=== PATIENT | female | born 1995 | race Caucasian/White ===

== ENCOUNTER 2018-09-29 19:37 | Inpatient (IN) | payer OTHER ==
--- NOTE | 2018-09-29 20:18 | PDOC ---
Rapid Medical Evaluation Chief Complaint: Pain, Acute Medical Evaluation: 09/29/18 20:13 I have performed a brief in-person evaluation of this patient. The patient presents with a chief complaint of: abd cramping since am, recent IUD placement , No N/V/ no sick contacts Pertinent physical exam findings: pale, non toxic appearing I have ordered the following: UA/ UCG The patient will proceed to the ED for further evaluation. Discharge Disposition - Diagnosis Abdominal pain - Referrals Referrals: Meme Carr MD [Primary Care Provider] - - Patient Instructions - Post Discharge Activity
[2018-09-29 21:15] LABS: URINE APPEARANCE SLCLOUDY; URINE BILIRUBIN NEGATIVE (<2.0 mg/dL); URINE COLOR YELLOW; URINE GLUCOSE (UA) NEGATIVE (NEGATIVE); URINE KETONE NEGATIVE (NEGATIVE); URINE LEUK ESTERASE TRACE (NEGATIVE); URINE NITRITE NEGATIVE (NEGATIVE); URINE PROTEIN NEGATIVE (NEGATIVE); URINE UROBILINOGEN NEGATIVE mg/dL (0.2-1.0)
[2018-09-29 21:28] LABS: EPI CELLS FEW /HPF (FEW); URINE MUCUS RARE
--- NOTE | 2018-09-29 21:59 | PDOC ---
History of Present Illness - General Chief Complaint: Pain, Acute Stated Complaint: FALL/ABD PAIN Time Seen by Provider: 09/29/18 21:59 - History of Present Illness Initial Comments: 22 year old female with PMH of ovarian cysts, nephrolith, and IUD in place presenting with sudden onset right lower quadrant abdominal pain shortly after falling on the floor. States she tripped fell onto the floor on her left hand and got right back up, laughing subsequently about the event. However, 30 minutes later she began to feel right lower quadrant abdominal pain that is worse when laying down radiating to the left quadrant occasionally, intermittent , and sharp. Denies fevers, chills, nausea, vomiting, diarrhea, or other symptoms. She is not sure if this feels like her ovarian cysts as that happened many years prior. 09/29/18 23:05 Past History - Past Medical History Allergies/Adverse Reactions: Allergies Allergy/AdvReac Type Severity Reaction Status Date / Time No Known Allergies Allergy Verified 09/29/18 23:43 - Suicide/Smoking/Psychosocial Hx Smoking History: Never smoked Have you smoked in the past 12 months: No Hx Alcohol Use: Yes (Social) Drug/Substance Use Hx: No Review of Systems - Review of Systems Constitutional: No: Chills, Diaphoresis, Fever, Loss of Appetite HEENTM: No: Eye Pain, Blurred Vision, Tearing Respiratory: No: Cough, Orthopnea, Shortness of Breath, Wheezing Cardiac (ROS): No: Chest Pain, Edema, Irregular Heart Rate ABD/GI: Yes: Other (pain). No: Abdominal Distended, Diarrhea, Nausea, Vomiting : No: Dysuria, Discharge, Frequency Musculoskeletal: No: Back Pain, Joint Pain, Joint Swelling Integumentary: No: Lesions, Lumps Neurological: No: Headache, Numbness, Paresthesia Psychiatric: Yes: Anxiety. No: Depression Endocrine: No: Excessive Sweating, Flushing Hematologic/Lymphatic: No: Anemia, Blood Clots, Easy Bleeding, Bleeding Diathesis *Physical Exam - Vital Signs Last Vital Signs Temp Pulse Resp BP Pulse Ox 98 F 102 H 20 139/80 100 09/29/18 20:11 09/29/18 20:11 09/29/18 20:11 09/29/18 20:11 09/29/18 20:11 - Physical Exam General Appearance: Yes: Nourished, Appropriately Dressed, Apparent Distress, Moderate Distress HEENT: positive: EOMI, BISI, Normal ENT Inspection, Normal Voice Neck: positive: Trachea midline, Normal Thyroid. negative: Tender, Rigid Respiratory/Chest: positive: Lungs Clear, Normal Breath Sounds. negative: Chest Tender, Respiratory Distress, Accessory Muscle Use Cardiovascular: positive: Regular Rhythm, Regular Rate Gastrointestinal/Abdominal: positive: Normal Bowel Sounds, Tender (rlq tenderness), Flat, Soft Lymphatic: negative: Adenopathy, Tenderness Musculoskeletal: positive: Normal Inspection. negative: CVA Tenderness Extremity: positive: Normal Capillary Refill, Normal Inspection, Normal Range of Motion Integumentary: positive: Normal Color, Dry, Warm Neurologic: positive: Fully Oriented, Alert, Normal Mood/Affect, Normal Response , Motor Strength 5/5 Moderate Sedation - Procedure Monitoring Vital Signs: Procedure Monitoring Vital Signs Temperature 98 F 09/29/18 20:11 Pulse Rate 102 H 09/29/18 20:11 Respiratory Rate 20 09/29/18 20:11 Blood Pressure 139/80 09/29/18 20:11 O2 Sat by Pulse Oximetry (%) 100 09/29/18 20:11 ED Treatment Course - ADDITIONAL ORDERS Additional order review: Laboratory Results 09/29/18 09/29/18 20:53 20:53 Urine Color Yellow Urine Appearance Slcloudy Urine pH 6.0 Ur Specific [place] 1.024 Urine Protein Negative Urine Glucose (UA) Negative Urine Ketones Negative Urine Blood Negative Urine Nitrite Negative Urine Bilirubin Negative Urine Urobilinogen Negative Ur Leukocyte Esterase Trace Urine WBC (Auto) 3 Urine RBC (Auto) 2 Ur Epithelial Cells Few Urine Mucus Rare Urine HCG, Qual Negative Medical Decision Making - Medical Decision Making 22 year old female with PMH of ovarian cysts presenting with right lower quadrant pain after falling and getting up without issue. This pain is peculiar in presentation as she had no abdominal trauma and was asymptomatic for 30 minutes after the fall. Furthermore, she has no GI symptoms. This could be another ruptured ovarian cysts. U preg and UA negative. Patient received 30 IM Toradol with good relief. TVUS pending and patient signed out to Dr. Urrutia. 09/29/18 23:58 *DC/Admit/Observation/Transfer Diagnosis at time of Disposition: Abdominal pain Qualifiers: Abdominal location: right lower quadrant Qualified Code(s): R10.31 - Right lower quadrant pain - Discharge Dispostion Disposition: HOME Condition at time of disposition: Improved - Referrals Referrals: Meme Carr MD [Primary Care Provider] - - Patient Instructions - Post Discharge Activity
--- NOTE | 2018-09-29 23:06 | PDOC ---
Attending Attestation - HPI HPI: This patient is a 22 year old female, with a PMHx of nephrolithiasis, ruptured ovarian cysts, who presents to the ED for lower abdominal pain today. Patient states that she was walking with a friend and fell forward on her hands. She states that she began experiencing stomach pain later on in the day but thought it was weird since she did not hit her abdomen when she fell. She describes it as sharp, RLQ>LLQ, worse when lying down, better when sitting up, worse with respiration. Denies h/o abdominal surgeries. Denies any nausea, vomiting, diarrhea, fever, chills, shortness of breath. 09/29/18 23:21 <Kristyn Fitzgerald - Last Filed: 09/29/18 23:21> - Resident Resident Name: Anika Garza - ED Attending Attestation I have performed the following: I have examined & evaluated the patient, The case was reviewed & discussed with the resident, I agree w/resident's findings & plan, Exceptions are as noted - Physicial Exam PE: 09/30/18 00:39 obese 22 yo female dev sudden RLQ pain tonight denies any fever,chills,nausea,vomiting head ncat neck supple lungs cta b/l cvs [id number] abd protuberant with RLQ pain extremities no edema skin warm and dry no cva tenderness neuro axox3,ambulatory psych appropriate - Medical Decision Making 09/30/18 02:11 Initially a transvaginal ultrasound was performed. Within the right adnexa. There was a 6.5 cm x 4 cm x 4 cm heterogeneous structure noted in the soft tissue and fluid components suggestive of an enlarged ovary. A normal appearing right ovary cannot be definitely visualized. This appearance , may be on the basis of infection and probably less likely neoplastic disease. Additional evaluation using contrast-enhanced CT is suggested. A moderate amount of nonspecific free intraperitoneal fluid is seen within the right adnexa and also within the right upper quadrant of the abdomen The left ovary demonstrates no definite abnormality. There is possible dilatation of the left fallopian tube. There is no Doppler evidence of left ovarian torsion. If "uterus appears unremarkable and overall size. there appears to be an IUD in place 09/30/18 02:14 CAT scan of the abdomen and pelvis contrast was obtained and I received a call from the radiologist. There is a complex lesion region right adnexa with adjacent fluid measuring 6.6 cm x 5.7 cm x 3.6 cm. The fluid extending into the right pericolic gutter with a small amount of fluid noted at the tip of the liver. The IUD appears in proper position without any evidence of migration. No left adnexal masses appreciated. The liver, spleen, pancreas, adrenal glands and kidneys are unremarkable. Gallbladder is unremarkable. No ureteral or bladder abnormalities noted Terminal ileum is normal in appearance The appendix is coil adjacent to the base of the cecum with a distal tip noted within the right lower quadrant of the abdomen. No obvious appendicolith identified. No inflammatory changes to the bases cecum. No large or small bowel inflammatory changes evident Impression pelvic findings concerning for tubo-ovarian abscess, ovarian torsion There are no findings to suggest acute appendicitis. Case discussed with Dr. Martin and patient will be admitted to [facility] with zosyn 09/30/18 02:17 <Camryn Urrutia - Last Filed: 09/30/18 02:21>
[2018-09-29] MEDS ORDERED: KETOROLAC TROMETHAMINE 30 MG/1 ML VIAL IM ONE (23:56)
[2018-09-30 00:20] LABS: BASO % 0.1 % (0-2.0); EOS % 0.1 % (0-4.5); HEMOGLOBIN 13.3 GM/dL (10.7-15.3); LYMPH % 6.9 % (8-40); MCH 28.4 pg (25.7-33.7); MCHC 34.1 g/dl (32.0-36.0); MEAN CELL VOLUME 83.2 fl (80-96); MEAN PLT VOLUME 7.3 fl (7.5-11.1); MONO % 4.6 % (3.8-10.2); NEUT % 88.3 % (42.8-82.8); PLATELET COUNT 285 K/MM3 (134-434); RBC 4.68 M/mm3 (3.60-5.2); WHITE BLOOD COUNT 16.4 K/mm3 (4.0-10.0)
[2018-09-30] MEDS ORDERED: SODIUM CHLORIDE 1,000 ML IV STA (00:25)
[2018-09-30] MEDS ORDERED: KETOROLAC TROMETHAMINE 30 MG/1 ML VIAL ONE (00:32)
[2018-09-30 00:43] LABS: INR 1.04 (0.83-1.09); PROTHROMBIN TIME (PATIENT) 12.3 SEC (9.7-13.0)
[2018-09-30] MEDS ORDERED: KETOROLAC TROMETHAMINE 30 MG/1 ML VIAL IVPUSH ONE (00:48)
[2018-09-30 00:52] LABS: ALBUMIN 3.6 g/dl (3.4-5.0); ALK PHOS 65 U/L (45-117); ANION GAP 8 MMOL/L (8-16); BILIRUBIN,TOTAL 0.4 mg/dL (0.2-1); BLOOD UREA NITROGEN 15 mg/dL (7-18); CALCIUM 9.1 mg/dL (8.5-10.1); CHLORIDE 106 mmol/L (98-107); CO2 25 mmol/L (21-32); CREATININE 0.7 mg/dL (0.55-1.3); GLUCOSE,RANDOM 89 mg/dL (74-106); POTASSIUM 4.3 mmol/L (3.5-5.1); SGOT/AST 12 U/L (15-37); SGPT/ALT 29 U/L (13-61); SODIUM 138 mmol/L (136-145); TOT PROT 6.9 g/dl (6.4-8.2)
[2018-09-30] MEDS ORDERED: HYDROmorphone HCl 2 MG/ML VIAL ONE (02:22)
--- NOTE | 2018-09-30 02:24 | PDOC ---
*Physical Exam - Vital Signs Last Vital Signs Temp Pulse Resp BP Pulse Ox 98 F 102 H 20 139/80 100 09/29/18 20:11 09/29/18 20:11 09/29/18 20:11 09/29/18 20:11 09/29/18 20:11 ED Treatment Course - LABORATORY CBC & Chemistry Diagram: 09/29/18 23:53 09/29/18 23:53 - ADDITIONAL ORDERS Additional order review: Laboratory Results 09/29/18 09/29/18 09/29/18 23:53 23:53 20:53 PT with INR 12.30 INR 1.04 Sodium 138 Potassium 4.3 Chloride 106 Carbon Dioxide 25 Anion Gap 8 BUN 15 Creatinine 0.7 Creat Clearance w eGFR > 60 Random Glucose 89 Calcium 9.1 Total Bilirubin 0.4 AST 12 L ALT 29 Alkaline Phosphatase 65 Total Protein 6.9 Albumin 3.6 Urine Color Yellow Urine Appearance Slcloudy Urine pH 6.0 Ur Specific [place] 1.024 Urine Protein Negative Urine Glucose (UA) Negative Urine Ketones Negative Urine Blood Negative Urine Nitrite Negative Urine Bilirubin Negative Urine Urobilinogen Negative Ur Leukocyte Esterase Trace Urine WBC (Auto) 3 Urine RBC (Auto) 2 Ur Epithelial Cells Few Urine Mucus Rare Urine HCG, Qual 09/29/18 20:53 PT with INR INR Sodium Potassium Chloride Carbon Dioxide Anion Gap BUN Creatinine Creat Clearance w eGFR Random Glucose Calcium Total Bilirubin AST ALT Alkaline Phosphatase Total Protein Albumin Urine Color Urine Appearance Urine pH Ur Specific [place] Urine Protein Urine Glucose (UA) Urine Ketones Urine Blood Urine Nitrite Urine Bilirubin Urine Urobilinogen Ur Leukocyte Esterase Urine WBC (Auto) Urine RBC (Auto) Ur Epithelial Cells Urine Mucus Urine HCG, Qual Negative 09/29/18 23:53 RBC 4.68 MCV 83.2 MCHC 34.1 RDW 14.0 MPV 7.3 L Neutrophils % 88.3 H Lymphocytes % 6.9 L Monocytes % 4.6 Eosinophils % 0.1 Basophils % 0.1 - RADIOLOGY Radiology Studies Ordered: Category Date Time Status ABDOMEN & PELVIS CT WITH CONTR [CT] Stat CT Scan 09/30/18 00:24 Taken *DC/Admit/Observation/Transfer Diagnosis at time of Disposition: Right adnexal tenderness, TOA (tubo-ovarian abscess) Leukocytosis Qualifiers: Leukocytosis type: unspecified Qualified Code(s): D72.829 - Elevated white blood cell count, unspecified - Discharge Dispostion Condition at time of disposition: Fair Decision to Admit order: Yes - Referrals Referrals: Meme Carr MD [Primary Care Provider] - - Patient Instructions - Post Discharge Activity
[2018-09-30] MEDS ORDERED: HYDROmorphone HCL CARPU-JECT 2 MG/1 ML DISP.SYRIN IVPUSH STA (02:25)
[2018-09-30] MEDS ORDERED: PIPERACILLIN/TAZOB 3.375 GM 3.375 GM in DEXTROSE 5%-WATER - 50 ML IVPB ONE ×2 (02:26→03:15)
[2018-09-30] MEDS ORDERED: PIPERACILLIN/TAZOB 3.375 GM 3.375 GM/50 ML BAG IVPB ONE (02:56)
[2018-09-30] MEDS ORDERED: CEFOXITIN SODIUM 1 GM in DEXTROSE 5%-WATER - 100 ML IVPB ONE (03:09)
[2018-09-30 04:01] VITALS: BMI 41.5
[2018-09-30] MEDS ORDERED: DOXYCYCLINE INJECTION 100 MG in DEXTROSE 5%-WATER - 100 ML IVPB STA (04:17)
[2018-09-30] MEDS ORDERED: DEXTROSE 5%-LACTATED RINGERS 1,000 ML IV SCH (04:45)
[2018-09-30] MEDS: ACETAMINOPHEN 325 MG TABLET (FP) PO PRN ×4 (04:53→21:43)
[2018-09-30] MEDS ORDERED: FLU VACCINE QUAD 60 MCG/0.5 ML (MDV 18-19) IM ONE (10:00)
--- NOTE | 2018-09-30 10:21 | HP ---
Admitting History and Physical - Admission Chief Complaint: Abdominal pain History of Present Illness: 22 yo , LMP 08/27/[address], admitted for suspicion of pelvic inflammatory infection. She was given IV antibiotic in ER and was placed on analgesia. History Source: Patient Limitations to Obtaining History: No Limitations - Past Medical History ...LMP: 08/27/18 ...LMP Comment: irregular menstruation ...: No ...Para: 0 - Past Surgical History Past Surgical History: Yes: None - Advance Directives Advance Directives: Yes: Organ Donor - Smoking History Smoking history: Never smoked Have you smoked in the past 12 months: No - Alcohol/Substance Use Hx Alcohol Use: Yes (Social) - Social History Usual Living Arrangement: Yes: With Parent History of Recent Travel: No Home Medications - Allergies Allergies/Adverse Reactions: Allergies Allergy/AdvReac Type Severity Reaction Status Date / Time No Known Allergies Allergy Verified 09/29/18 23:43 - Home Medications Home Medications: Ambulatory Orders NK [No Known Home Medication] 09/30/18 Family Disease History - Family Disease History Family History: Unremarkable Review of Systems - Review of Systems Constitutional: reports: No Symptoms Eyes: reports: No Symptoms HENT: reports: No Symptoms Neck: reports: No Symptoms Cardiovascular: reports: No Symptoms Respiratory: reports: No Symptoms Gastrointestinal: reports: No Symptoms Genitourinary: reports: Pain Breasts: reports: No Symptoms Reported Musculoskeletal: reports: No Symptoms Neurological: reports: No Symptoms Psychiatric: reports: No Symptoms Pain Intensity: 8 Physical Examination Vital Signs: Vital Signs Temperature 97.7 F 09/30/18 08:38 Pulse Rate 85 09/30/18 08:38 Respiratory Rate 20 09/30/18 08:38 Blood Pressure 119/62 09/30/18 08:38 O2 Sat by Pulse Oximetry (%) 100 09/30/18 03:31 Constitutional: Yes: Well Nourished Eyes: Yes: Conjunctiva Clear HENT: Yes: Atraumatic Neck: Yes: Supple Cardiovascular: Yes: Regular Rate and Rhythm Respiratory: Yes: Regular Gastrointestinal: Yes: Normal Bowel Sounds Musculoskeletal: Yes: WNL Extremities: Yes: WNL Neurological: Yes: Alert, Oriented ...Motor Strength: WNL Psychiatric: Yes: Alert, Oriented Labs: CBC, BMP 09/29/18 23:53 09/29/18 23:53 Problem List - Problems (1) Pelvic inflammatory disease (PID) Code(s): N73.9 - FEMALE PELVIC INFLAMMATORY DISEASE, UNSPECIFIED Assessment/Plan Abdominal pain Leukocytosis R/O TOA R/O PID IV antibiotic Continue analgesia
[2018-09-30] MEDS ORDERED: ACETAMINOPHEN 325 MG TABLET (FP) PO PRN (10:22)
[2018-09-30] MEDS: oxyCODONE HCL 5 MG TABLET PO PRN ×3 (10:25→21:44)
[2018-09-30] MEDS: CEFOTETAN DISODIUM 2 GM in DEXTROSE 5%-WATER - 100 ML IVPB SCH ×2 (12:17→21:43)
[2018-09-30] MEDS: DOXYCYCLINE INJECTION 100 MG in DEXTROSE 5%-WATER - 100 ML IVPB SCH (22:54)
[2018-10-01 06:01] LABS: BASO % 0.4 % (0-2.0); EOS % 1.4 % (0-4.5); HEMATOCRIT 32.2 % (32.4-45.2); LYMPH % 25.4 % (8-40); MCH 28.8 pg (25.7-33.7); MCHC 34.2 g/dl (32.0-36.0); MEAN CELL VOLUME 84.3 fl (80-96); MEAN PLT VOLUME 6.9 fl (7.5-11.1); MONO % 7.6 % (3.8-10.2); NEUT % 65.2 % (42.8-82.8); PLATELET COUNT 188 K/MM3 (134-434); RBC 3.82 M/mm3 (3.60-5.2); RDW 13.8 % (11.6-15.6); WHITE BLOOD COUNT 7.1 K/mm3 (4.0-10.0)
--- NOTE | 2018-10-01 06:25 | PN ---
Progress Note (SOAP) - Subjective Chief Complaint: Pt improved after antibiotic - Current Medications Current Medications: Active Medications Acetaminophen (Tylenol -) 650 mg PO Q4H PRN PRN Reason: PAIN Last Admin: 09/30/18 21:43 Dose: 650 mg Acetaminophen (Tylenol -) 325 mg PO Q4H PRN PRN Reason: PAIN 1-5 Dextrose/Lactated Ringer's (D5-Lr -) 1,000 mls @ 125 mls/hr IV ASDIR WILLY Last Admin: 09/30/18 04:54 Dose: 125 mls/hr Doxycycline Hyclate 100 mg/ (Dextrose) 100 mls @ 50 mls/hr IVPB BID WILLY Last Admin: 09/30/18 22:54 Dose: 50 mls/hr Cefotetan Disodium 2 gm/ (Dextrose) 100 mls @ 200 mls/hr IVPB Q12H [facility]; Protocol Stop: 10/01/18 10:14 Last Admin: 09/30/18 21:43 Dose: 200 mls/hr Oxycodone HCl (Roxicodone -) 5 mg PO Q4H PRN PRN Reason: PAIN LEVEL 1-5 Last Admin: 09/30/18 21:44 Dose: 5 mg - Objective Vital Signs: Vital Signs Temperature 98.3 F 09/30/18 22:00 Pulse Rate 91 H 09/30/18 22:00 Respiratory Rate 18 09/30/18 22:00 Blood Pressure 102/52 L 09/30/18 22:00 O2 Sat by Pulse Oximetry (%) 100 09/30/18 03:31 Constitutional: Yes: Well Nourished, No Distress Gastrointestinal: Yes: WNL, Normal Bowel Sounds, Soft Musculoskeletal: Yes: WNL Extremities: Yes: WNL Edema: No Labs Lab Results: CBC, BMP 10/01/18 05:50 09/29/18 23:53 Assessment/Plan PID on abs doing well plan continue preasent management
[2018-10-01] MEDS: DOXYCYCLINE INJECTION 100 MG in DEXTROSE 5%-WATER - 100 ML IVPB SCH (09:14)
--- NOTE | 2018-10-01 11:09 | DS ---
Physical Examination Vital Signs: Vital Signs Temperature 98.3 F 09/30/18 22:00 Pulse Rate 91 H 09/30/18 22:00 Respiratory Rate 18 09/30/18 22:00 Blood Pressure 102/52 L 09/30/18 22:00 O2 Sat by Pulse Oximetry (%) 100 09/30/18 03:31 Constitutional: Yes: No Distress Eyes: Yes: Conjunctiva Clear HENT: Yes: Atraumatic Neck: Yes: Supple Cardiovascular: Yes: Regular Rate and Rhythm Respiratory: Yes: Regular Gastrointestinal: Yes: Normal Bowel Sounds Breast(s): Yes: WNL Musculoskeletal: Yes: WNL Extremities: Yes: WNL Neurological: Yes: Alert, Oriented ...Motor Strength: WNL Psychiatric: Yes: Alert, Oriented Labs: CBC, BMP 10/01/18 05:50 09/29/18 23:53 Discharge Summary Reason For Visit: TUBO-OVARIAN ABSCESS LEUKOCYTOSIS Current Active Problems Leukocytosis (Acute) Pelvic inflammatory disease (PID) (Acute) Right adnexal tenderness (Acute) TOA (tubo-ovarian abscess) (Acute) Procedures: Principal: Administration of IV antibiotics Hospital Course: Patient admitted for abdominal pain. After Cat scan and pelvic sonogram she was given a diagnosis of tuboovarian abscess / PID. During her stay, she received IV antibiotics and analgesia. Condition: Fair - Instructions Diet, Activity, Other Instructions: Regular diet F/U with OBGYN as outpatient Referrals: Meme Carr MD [Primary Care Provider] - - Home Medications Comprehensive Discharge Medication List: Ambulatory Orders Doxycycline Hyclate 100 mg PO BID #20 tablet 10/01/18 Ibuprofen [Motrin -] 600 mg PO Q4H PRN #60 tablet 10/01/18 metroNIDAZOLE [Flagyl -] 500 mg PO DAILY #14 tablet 10/01/18
[2018-10-01 12:00] VITALS: BP 117/63; PULSE 90; TEMP 97.9
== END 2018-10-01 12:05 | disposition home or self-care (01) | DRG 759 ==
LOC: JER 19:37 → JERBED 09-30 02:24 → J3W 09-30 03:35
PROVIDERS: ADMIT Obstetrics & Gynecology; ATTEND Obstetrics & Gynecology
DX: N70.93 Salpingitis and oophoritis, unspecified (principal); D72.829 Elevated white blood cell count, unspecified; N73.9 Female pelvic inflammatory disease, unspecified
CPT/HCPCS: 36415; 74177-TC; 76830-TC; 80053; 81003; 81015; 84703; 85025; 85610; 99284-25

== ENCOUNTER 2018-10-02 17:56 | Emergency (ER) | payer OTHER ==
--- NOTE | 2018-10-02 18:00 | PDOC ---
Rapid Medical Evaluation Chief Complaint: Chest Pain Time Seen by Provider: 10/02/18 17:59 Medical Evaluation: Allergies Allergy/AdvReac Type Severity Reaction Status Date / Time No Known Allergies Allergy Verified 09/29/18 23:43 10/02/18 18:02 I have performed a brief in-person evaluation of this patient. The patient presents with a chief complaint of: Chest pain and dyspnea. Pt is s/ p 2 night admission for pelvic pain initially suspicious for TOA, dx at time of dc was ruptured ovarian cyst; she was also given abx for possible PID. Pt has Mirena IUD. Pertinent physical exam findings: HR 124. Lungs CTAB, RRR S1/S2 no murmurs. No calf tenderness or edema. I have ordered the following: EKG, labs, CTA chest r/o PE. The patient will proceed to the ED for further evaluation. 10/02/18 18:03 Discharge Disposition - Diagnosis Tachycardia Chest pain Qualifiers: Chest pain type: unspecified Qualified Code(s): R07.9 - Chest pain, unspecified Dyspnea Qualifiers: Dyspnea type: shortness of breath Qualified Code(s): R06.02 - Shortness of breath; R06.00 - Dyspnea, unspecified; R06.01 - Orthopnea - Discharge Dispostion Condition at time of disposition: Stable - Referrals - Patient Instructions - Post Discharge Activity
[2018-10-02 18:01] VITALS: BMI 41.5
[2018-10-02] MEDS ORDERED: SODIUM CHLORIDE 1,000 ML IV STA (18:01)
[2018-10-02 18:30] LABS: BASO % 0.1 % (0-2.0); EOS % 0.3 % (0-4.5); HEMOGLOBIN 13.4 GM/dL (10.7-15.3); LYMPH % 7.8 % (8-40); MCH 28.4 pg (25.7-33.7); MCHC 34.3 g/dl (32.0-36.0); MEAN CELL VOLUME 82.8 fl (80-96); MONO % 5.7 % (3.8-10.2); NEUT % 86.1 % (42.8-82.8); PLATELET COUNT 234 K/MM3 (134-434); RBC 4.71 M/mm3 (3.60-5.2); RDW 13.6 % (11.6-15.6); WHITE BLOOD COUNT 11.7 K/mm3 (4.0-10.0)
[2018-10-02 18:35] LABS: INR 1.14 (0.83-1.09); PROTHROMBIN TIME (PATIENT) 13.5 SEC (9.7-13.0)
--- NOTE | 2018-10-02 19:07 | PDOC ---
Attending Attestation - HPI HPI: 10/02/18 19:59 Patient is a 22 year old female with a significant past medical history of recurrent kidney stones, who presents to the ED with complaints of left upper back pain that began this morning. Patient reports waking up to severe left sided upper back pain, that she states is increased in intensity with deep inspiration. She reports experiencing intermittent episodes of chest discomfort and shortness of breath that is increased with minor exertion. Patient reports being recently admitted for ovarian abscess for IV antibiotics, and was discharged shortly after with prescription for oral antibiotics. She reports going to her [facility] this afternoon for a follow up, who noticed her vital signs were abnormal, advising her to come into the ED for further evaluation. Denies chest pain, Sob. Denies nausea, vomiting. Denies fevers, chills. Denies dysuria, hematuria. Denies constipation, diarrhea. Denies trauma to affected area, loss of consciousness. Denies contact with sick individuals, out of state travelling. Denies any other symptoms. Allergies: None Social history: lives with mother. No smoking. Social alcohol use. No illicit drugs. Surgical: ACL surgery. PMD: Dr. Carr - Physicial Exam PE: 10/02/18 19:59 GENERAL: Awake, alert, and fully oriented, in no acute distress HEAD: No signs of trauma EYES: PERRLA, EOMI, sclera anicteric, conjunctiva clear ENT: Auricles normal inspection, hearing grossly normal, nares patent, oropharynx clear without exudates. Moist mucosa NECK: Normal ROM, supple, no lymphadenopathy, JVD, or masses LUNGS: Breath sounds equal, clear to auscultation bilaterally. No wheezes, and no crackles HEART: +Tachycardic. Regular rate and rhythm, normal S1 and S2, no murmurs, rubs or gallops ABDOMEN: Soft, nontender, normoactive bowel sounds. No guarding, no rebound. No masses EXTREMITIES: -Homans sign. No calf tenderness. Normal range of motion, no edema. No clubbing or cyanosis. No cords, erythema, or tenderness MUSCULOSKELETAL: No midline or c spine tenderness. NEUROLOGICAL: Cranial nerves II through XII grossly intact. Normal speech, normal gait SKIN: Warm, Dry, normal turgor, no rashes or lesions noted. <Jerry Mccoy - Last Filed: 10/02/18 19:59> - Resident Resident Name: Radha Villanueva - ED Attending Attestation I have performed the following: I have examined & evaluated the patient, The case was reviewed & discussed with the resident, I agree w/resident's findings & plan, Exceptions are as noted - Medical Decision Making 10/02/18 19:07 I, Dr. Inocencia Avila, DO, attest that this document has been prepared under my direction and personally reviewed by me in its entirety. I further attest, that it accurately reflects all work, treatment, procedures and medical decision -making performed by me. 10/02/18 19:35 a/p: 22yo female with CP ad SOB since this Am -back and cp -recent hospitalization for TOA and ovarian cyst -seen at [facility] earlier today for her [facility] [employer] [facility] [employer] follow up and there was concern for PE given tachypnea, pleuritic cp, and tachycardia -no leg swelling -no reproducible chest wall pain -no reproducible midline back ttp -will send labs, cta chest, ekg -ivf hydration, toradol for pain, received tylenol at [facility] 10/02/18 23:30 cta negative tsh normal pt feeling much better ambulates with a steady gait no cp no sob no pleuritic component states she wants to go home mild tachycardia will give cardiology follow up for further eval <Inocencia Avila - Last Filed: 10/02/18 23:33> Heart Score/ECG Review - ECG Intrepretation Comment:: 10/02/18 19:55 sinus tach at 117, nl axis, nl interval, t wave inversions III, no acute st/t wave findings <Inocencia Avila - Last Filed: 10/02/18 23:33>
[2018-10-02] MEDS ORDERED: KETOROLAC TROMETHAMINE 15 MG/ML VIAL IVPUSH ONE (19:16)
[2018-10-02] MEDS ORDERED: KETOROLAC TROMETHAMINE 15 MG/ML VIAL ONE (19:26)
[2018-10-02 19:31] LABS: ALBUMIN 3.8 g/dl (3.4-5.0); ALK PHOS 66 U/L (45-117); ANION GAP 7 MMOL/L (8-16); BILIRUBIN,TOTAL 0.6 mg/dL (0.2-1); BLOOD UREA NITROGEN 7 mg/dL (7-18); CALCIUM 9.4 mg/dL (8.5-10.1); CHLORIDE 105 mmol/L (98-107); CO2 24 mmol/L (21-32); CREATININE 0.7 mg/dL (0.55-1.3); GLUCOSE,RANDOM 112 mg/dL (74-106); POTASSIUM 4.2 mmol/L (3.5-5.1); SGOT/AST 19 U/L (15-37); SGPT/ALT 24 U/L (13-61); SODIUM 136 mmol/L (136-145); TOT PROT 7.3 g/dl (6.4-8.2)
--- NOTE | 2018-10-02 19:38 | PDOC ---
History of Present Illness - General Chief Complaint: Chest Pain Stated Complaint: PCP SENT/CHEST PAIN Time Seen by Provider: 10/02/18 17:59 - History of Present Illness Initial Comments: Niru Martins is a 22yo otherwise healthy, morbidly obese woman, recently admitted for tuboovarian abscess v PID (09/29-10/01) who presents from her cost controller's office today with tachycardia, tachypnea, upper pleuritic chest pain, and SOB since this morning. Niru reports that she has had mild suprapubic and right lower abdominal pain since being discharged from the hospital; she also endorses nausea and mild anorexia. However, these symptoms have improved over time. She has been taking her antibiotics as prescribed. She went to her cost controller today for follow up and was told that "everything was OK' with recovery from the TOA, but they were concerned for a possible blood clot given her tachycardia, tachypnea, SOB and pleuritic pain. She states that she felt short of breath starting this morning along with significant shortness of breath. She states that she needed to take breaks to walk across the parking lot, and she even got "out of breath tying her shoes." She has no h/o asthma and has never felt like this before. She describes her pain as in the left upper back, upper chest, and into the left neck. She states that it worsens with deep breaths and is tolerable when breathing shallowly. Ms Martins denies any personal history of blood clots, known clotting disorder, family history of clots, personal history of CA, recent travel (went via car to [place], took breaks every 2-3 hours), oral contraceptive use (Mirena IUD), recent fracture or surgery, or recent immobilization. She reports that she received acetaminophen around 5pm with some improvement in her pain. Past History - Past Medical History Allergies/Adverse Reactions: Allergies Allergy/AdvReac Type Severity Reaction Status Date / Time No Known Allergies Allergy Verified 09/29/18 23:43 Home Medications: Ambulatory Orders Doxycycline Hyclate 100 mg PO BID #20 tablet 10/01/18 Ibuprofen [Motrin -] 600 mg PO Q4H PRN #60 tablet 10/01/18 metroNIDAZOLE [Flagyl -] 500 mg PO DAILY #14 tablet 10/01/18 Anemia: No Asthma: No Cancer: No Cardiac Disorders: No CVA: No COPD: No CHF: No Dementia: No Diabetes: No GI Disorders: No Disorders: Yes (kidney stones 2018) HTN: No Hypercholesterolemia: No Liver Disease: No Seizures: No Thyroid Disease: No - Surgical History Abdominal Surgery: No Appendectomy: No Cardiac Surgery: No Cholecystectomy: No Lung Surgery: No Neurologic Surgery: No Orthopedic Surgery: Yes (ACL reconstruction) - Immunization History Immunization Up to Date: No - Suicide/Smoking/Psychosocial Hx Smoking History: Never smoked Have you smoked in the past 12 months: No Information on smoking cessation initiated: No Hx Alcohol Use: No Drug/Substance Use Hx: No Substance Use Type: None Review of Systems - Review of Systems Comments:: General: No fevers, no chills, no weight or appetite change, no malaise HEENT: No changes in vision, no changes in hearing, no congestion, no sore throat CV: No exertional chest pain, no palpitations, no LE edema Pulm: See HPI GI: No nausea or vomiting, no change in bowel habits, no melena : No frequency, no urgency, no dysuria. Recent ovarian abscess, cyst Musc: No back pain, no joint swelling, no recent injury Skin: No rash, no lesions, no erythema Endo: No excessive thirst, no heat/cold intolerance Heme: No unusual bruising or bleeding, no swollen glands Neuro: No syncope, no numbness/tingling, no focal weakness Vasc: No claudication Psych: No recent change in mood, no SI or HI *Physical Exam - Vital Signs Last Vital Signs Temp Pulse Resp BP Pulse Ox 98.2 F 123 H 18 127/77 95 10/02/18 17:58 10/02/18 17:58 10/02/18 17:58 10/02/18 17:58 10/02/18 17:58 - Physical Exam Comments: General: No acute distress, morbidly obese, appears stated age HEENT: PERRL, EOMI, MMM, voice normal, normal neck ROM, no LAD Cards: Tachycardic, regular, no murmur appreciated Pulm: Mildly tachypnic on room air, clear to auscultation bilaterally, no wheezing or crackles, good air movement throughout b/l lungs Abd: Soft, nondistended. Mild suprapubic and lower abdominal tenderness, R>L : No CVA tenderness Ext: Atraumatic. No LE edema. ROM intact. Strength 5/5 and equal bilaterally. No calf tenderness or swelling, no pain w/ passive foot flexion Vasc: Extremities WWP Skin: Normal color, no rashes or lesions Neuro: A&Ox3, CN grossly intact, normal speech, motor/sensory grossly intact and symmetric Psych: Mood appropriate to situation Moderate Sedation - Procedure Monitoring Vital Signs: Procedure Monitoring Vital Signs Temperature 98.2 F 10/02/18 17:58 Pulse Rate 123 H 10/02/18 17:58 Respiratory Rate 18 10/02/18 17:58 Blood Pressure 127/77 10/02/18 17:58 O2 Sat by Pulse Oximetry (%) 95 10/02/18 17:58 Heart Score/ECG Review - ECG Intrepretation Rhythm: Regular Rhythm - [place]: Normal - P and [place] Prominent R with upright T in V1 (true posterior MT): No Delta Wave(s) Present: No WPW: No - ST and T Non Specific ST-T Wave changes: Yes - ECG Impressions Tachycardia: Sinus ED Treatment Course - LABORATORY CBC & Chemistry Diagram: 10/02/18 18:10 10/02/18 18:10 - ADDITIONAL ORDERS Additional order review: Laboratory Results 10/02/18 10/02/18 18:10 18:08 PT with INR 13.50 H INR 1.14 H Urine HCG, Qual Negative 10/02/18 18:10 RBC 4.71 MCV 82.8 MCHC 34.3 RDW 13.6 MPV 7.0 L Neutrophils % 86.1 H D Lymphocytes % 7.8 L D Monocytes % 5.7 Eosinophils % 0.3 Basophils % 0.1 Medical Decision Making - Medical Decision Making 10/02/18 19:16 Niru Martins is a 22yo otherwise healthy woman, recently admitted with R ovarian cyst, ovarian abscess, and PID who presents from her OB's office with left upper pleuritic pain, shortness of breath, tachycardia, and tachypnea. \\ - Given history, vitals, and normal lung exam, concern for PE despite lack of risk factors (no personal or family h/o clots, no oral contraceptives, no recent surgery, no recent fracture, no prolonged immobilization, no significant recent travel) - CBC, CMP, CTA ordered in RME. CBC unremarkable, chemistry pending. Once Cr is resulted will take to CT - EKG with sinus tachycardia. Non-specific t-wave inversions in III; no other abnormalities noted. - 15mg IV toradol for continue abd pain 10/02/18 20:01 - Chemistry reviewed, no concerning abnormalities - Will take for CTA 21:20 - CT completed, no thrombus noted. Per radiology read has bibasilar atalectasis - likely secondary to shallow breathing today - Reports pain is notably improved after toradol - Ambulated to bathroom, able to walk normal rate, no shortness of breath - Eating dinner w/o difficulty. On further questioning, reports that she has not had anything at all to drink today and minimal fluid intake yesterday. Suspect mild dehydration may be contributing to tachycardia. 2nd 1L fluid bolus given 10/02/18 22:15 - HR rechecked at bedside after completing 2nd liter of IVF. Still around 110. Pt reports minimal pain at this point, is able to take deep breath - Given continued tachycardia with normal labs, no concerning findings on chest CTA, will add on TSH to labs. - Ruled out PE, pneumothorax, pneumonia, or other serious lung pathology. Tachycardia may be secondary to continued lower abdominal pain, mild dehydration. Anxiety could also be contributing, especially given concern about possible PE or medical emergency today. 10/02/18 23:39 - TSH 1.9, WNL - Will d/c home with close PMD and cardiology follow up. Discussed home care, return precautions, and importance of follow up in detail with Ms Martins and her mother. Both state understanding and agreement. Discussed with Dr Avila. Radha Villanueva PGY1 *DC/Admit/Observation/Transfer Diagnosis at time of Disposition: Tachycardia, Pleuritic chest pain - Discharge Dispostion Condition at time of disposition: Stable - Referrals Referrals: Meme Carr MD [Primary Care Provider] - Mateusz Toro MD [Staff Physician] - - Patient Instructions Printed Discharge Instructions: DI for Tachycardia, DI for Chest Pain Additional Instructions: Discharge Instructions: You were seen in the emergency department for a rapid heart rate, shortness of breath, and chest pain with breathing. You had blood tests to check for infection or electrolyte abnormalities, an EKG to check your heart, and a CT angiogram scan (CTA) to check the blood vessels in your chest for clots. The only abnormality found on any of the tests was a slightly rapid heart rate. This could be due to slight dehydration, pain from your recent ovarian abscess, or anxiety. Your initial chest pain could also be due to a number of factors including abnormal positioning while walking or sleeping due to your abdominal pain. Home Care: - Try to increase your fluid intake to 6-8 cups of water per day - You may use acetaminophen (Tylenol) 650-1000g every 6-8 hours OR ibuprofen ( Advil, Motrin) 600-800mg every 6-8 hours OR naproxen (Aleve) 220mg every 12 hours as needed for pain. Choose only one of these medications to use at a time. - Your chest xray showed that you are probably not fully expanding your lungs. To prevent pneumonia, take deep breaths several times per hour. Follow Up: - For your rapid heart rate, you have been referred to Dr Toro, a industrial engineering. You should make an appointment for follow up within the next week. - Follow up with your primary doctor within the next week or sooner if your pain persists. - Seek immediate medical care if your chest pain or shortness of breath worsen significantly, you have abnormally rapid breathing, you faint, or you develop fever to 101F or higher. - Post Discharge Activity
[2018-10-02 22:34] VITALS: BP 122/59; PULSE 116; TEMP 98.5
[2018-10-02] MEDS ORDERED: SODIUM CHLORIDE 0.9% 500 ML INFUS.BAG IV ONE (22:48)
--- NOTE | 2018-10-03 11:43 | EKG ---
Test Reason : Blood Pressure : / mmHG Vent. Rate : 117 BPM Atrial Rate : 117 BPM P-R Int : 156 ms QRS Dur : 084 ms QT Int : 312 ms P-R-T Axes : 064 062 028 degrees QTc Int : 435 ms SINUS TACHYCARDIA OTHERWISE NORMAL ECG WHEN COMPARED WITH ECG OF 16-DEC-2012 11:42, NONSPECIFIC T WAVE ABNORMALITY NOW EVIDENT IN ANTERIOR LEADS Confirmed by BIENVENIDO LOW, HENRRY ([id number]) on 10/03/2018 11:42:45 AM Referred By: Confirmed By:HENRRY FARIA MD
== END 2018-10-02 23:39 | disposition home or self-care (01) ==
LOC: JER 17:56
PROC: 3E0337Z Introduction of Electrolytic and Water Balance Substance into Peripheral Vein, Percutaneous Approach (ICD-10-PCS; principal; 2018-10-02)
PROC: 3E0333Z Introduction of Anti-inflammatory into Peripheral Vein, Percutaneous Approach (ICD-10-PCS; 2018-10-02)
DX: R07.9 Chest pain, unspecified (principal); R00.0 Tachycardia, unspecified; Z87.42 Personal history of other diseases of the female genital tract
CPT/HCPCS: 36415; 71275-TC; 80053; 84443; 84703; 85025; 85610; 93005; 93010; 99282-25; J7030